=== PATIENT | female | born 1955 | race Caucasian/White ===

== ENCOUNTER 2022-08-21 15:57 | Outpatient (CLI) | payer BC, SELFPAY ==
[2022-08-21 17:01] LABS: Anion Gap 11 mmol/L (8-16); Blood Urea Nitrogen 20 mg/dL (7-17); Calcium 8.9 mg/dL (8.4-10.2); Carbon Dioxide 23 mmol/L (22-30); Chloride 108 mmol/L (98-107); Estimated Glomerular Filt Rate > 60; Glucose 180 mg/dL (65-110); Sodium 142 mmol/L (137-145)
== END 2022-08-21 15:58 | disposition home or self-care (01) ==
PROVIDERS: Anesthesiology; Visit Provider Urology
DX: Z01.818 Encounter for other preprocedural examination (principal); Z79.899 Other long term (current) drug therapy; R32 Unspecified urinary incontinence
CPT/HCPCS: 36415; 80048; 87086

== ENCOUNTER 2022-08-31 00:34 | Day surgery (SDC) | payer BC, SELFPAY ==
[2022-08-17 15:17] VITALS: BMI 31.7
--- NOTE | 2022-08-17 15:27 | PC.NURSE ---
PRE-OP INSTRUCTIONS, PLEASE READ CAREFULLY Report to the Outpatient Waiting Room, entrance under the green pavilion located off [facility], at time _1:30 PM_ on date _08/31/22_. Planned Procedure Time: _3:30 PM_. Time changes happen often and if your time is changed the preop area will call you the afternoon before. - You and your visitor will be asked to self-screen and do not enter if you have any COVID symptoms. - Only one visitor is requested with a max of two and NO children visitors are allowed at this time. - The patient visitor may be requested to leave or wait in car when not with patient due to distancing restrictions. - A mask is optional within the hospital. Patients may have clear liquids (water, carbonated beverages, clear teas, apple juice) until 3 hours prior to surgery (1230PM) with a maximum of 20 ounces. - No food from midnight until time of surgery Take the following medications with a SIP of water the morning of surgery: _BISOPROLOL-HCTZ, CITALOPRAM_ Medications to discontinue per ANESTHESIA - _VITAMINS/SUPPLEMENTS 3 DAYS PRIOR TO SURGERY, Date to take last dose 08/27/22_ Please no make-up, nail czech, hairspray, perfume, deodorant, or body powder the day of surgery. No jewelry (including any body piercings) or valuables the day of surgery, leave them at home. Please take a shower or bath the night before, or the morning of, surgery with an antibacterial soap. Wear comfortable, loose fitting clothing. - Jewelry must be removed prior to entering the operating room. Rings and piercings that are not removed may be cut off. - The hospital will not accept responsibility for valuables. - Please leave all valuables, including medications, at home the day of surgery. If you are going home after surgery, a licensed dray driver must drive you home. - NO public transportation without another adult if you receive anesthesia. - We recommend that an adult stay with you for 24 hours following discharge. - We also recommend that you do not drive, make important decision, drink alcoholic beverages, or take any drugs that were not prescribed by your health care provider for at least 24 hours after your discharge time. Follow any additional instructions given to you from your surgeon. If you or anyone in your household have experienced Covid symptoms in the past week, please notify your surgeon or the nurse liaison at the phone number below for possible testing. Telephone instructions given to ___PT and asked if any additional questions and then verbalized understanding. Patient advised to call surgeon office or pre surgery nurse liaison [phone] if any additional questions.
--- NOTE | 2022-08-28 10:49 | PM.IMHP ---
H&P: HPI History of Present Illness Date/Time: 08/28/22 10:49 Chief Complaint: Incontinence Narrative: 66-year-old with mixed incontinence. Stress incontinence confirmed on urodynamics. On anticholinergic for overactive bladder Review of Systems Review of Systems: All systems reviewed & are unremarkable except as noted in HPI and below PMFSH Past Medical History Medical History Acid reflux Arthritis History of vaginal delivery x 3 Hypertension Surgical History Surgical History History of bladder surgery History of left knee replacement History of shoulder surgery History of total hysterectomy History of tubal ligation Family History Family History Sibling Diabetes mellitus Hypertension Patient's brother is in good health Mother Diabetes mellitus, Onset Age: 92 Hypertension, Onset Age: 92 Other Family history of malignant neoplasm of breast Family history of malignant neoplasm of breast in first degree relative Family history of malignant neoplasm of male breast Social History Social History Smoking status: Never smoker Second hand tobacco smoke exposure: No Alcohol intake: current Alcohol use details: STATES VERY RARELY MAYBE COUPLE DRINKS/6 MONTHS Substance use: never Substance use type: does not use Spiritual care concerns: No Meds Home Medications and Allergies Home Medications Medication Instructions Recorded Confirmed Type bisoprolol 2.5 1 tablet PO DAILY 11/21/19 08/17/22 History mg-hydrochlorothiazide 6.25 mg tablet calcium carbonate 600 mg calcium 600 mg PO DAILY 11/21/19 08/17/22 History (1,500 mg) tablet (Calcium) citalopram 20 mg tablet 20 mg PO DAILY 11/21/19 08/17/22 History multivitamin (Daily Multi-Vitamin 1 tablet PO DAILY 11/21/19 08/17/22 History tablet) cholecalciferol (vitamin D3) 25 25 mcg PO DAILY 11/26/20 08/17/22 History mcg (1,000 unit) capsule oxyquinoline 0.025 %-sodium lauryl See Rx Instructions vaginal 04/15/22 08/17/22 Rx sulfate 0.01 % vaginal gel .COMPLEX #113.4 grams (Trimo-Serrato Jelly) garlic 2 cap QAM 08/17/22 08/17/22 History omeprazole 40 mg capsule,delayed 40 mg QAM 08/17/22 08/17/22 History release oxybutynin chloride 10 mg 10 mg PO DAILY 08/17/22 08/17/22 History tablet,extended release 24 hr clotrimazole-betamethasone 1 1 applic topical BID 2 weeks #15 08/21/22 Rx %-0.05 % topical cream grams estradiol 0.01% (0.1 mg/gram) See Rx Instructions .Route 08/21/22 Rx vaginal cream .COMPLEX #42.5 grams Allergies Allergy/AdvReac Type Severity Reaction Status Date / Time Sulfa (Sulfonamide Allergy Unknown Unknown Verified 08/17/22 15:10 Antibiotics) SULFA Allergy Unknown Unknown Uncoded 08/17/22 15:10 SULFAMERAZINE (Generic Allergy Y Uncoded 08/17/22 15:10 Allergy) Exam Narrative: No acute distress Alert oriented x3 Fixed urethra Assessment and Plan Assessment and plan (1) Intrinsic sphincter deficiency (ISD): Code(s): N36.42 - Intrinsic sphincter deficiency (ISD) Status: Acute Plan Cystoscopy with bulking agent injection. Understands risks of bleeding, infection, incomplete efficacy, need for ancillary procedures, retention. Agrees to proceed
--- NOTE | 2022-08-31 07:17 | WPDHPUPDATE1 ---
History and Physical Update Update Date/Time: 08/31/22 07:17 History and Physical has been reviewed, including an updated exam of the patient. There are NO changes in the patient's condition. Risks, benefits, and alternatives have been discussed and questions answered. Patient agrees to proceed with procedure.
[2022-08-31 08:30] VITALS: BP 140/77; PULSE 54; RESP 18; TEMP 36.2; O2SAT 97
[2022-08-31] MEDS: LACTATED RINGERS 1,000 ML 30 ML IV CONT (08:45)
--- NOTE | 2022-08-31 08:51 | WPDANESEPPF ---
Anes - Initial Pre Proc Eval Procedure: Operation Date: 08/31/22 10:30 Proposed Procedures p Cystoscopy, Injection Bulking Agent - Aashish Velasquez MD <Jorge Luis Taveras MD - Last Filed: 09/01/22 14:17> Date/Time: 08/31/22 08:51 <Jorge Luis Taveras MD - Last Filed: 09/01/22 14:17> Surgeon: Aashish Velasquez MD <Jorge Luis Taveras MD - Last Filed: 09/01/22 14:17> Pre Op Diagnosis: intrinsic sphincter deficiency <Jorge Luis Taveras MD - Last Filed: 09/01/22 14:17> Patient Data Age: 66 Gender: F Height: 1.6 m Weight: 81.36 kg <Jorge Luis Taveras MD - Last Filed: 09/01/22 14:17> Allergies Allergy/AdvReac Type Severity Reaction Status Date / Time Sulfa (Sulfonamide Allergy Unknown Unknown Verified 08/31/22 08:55 Antibiotics) <Jorge Luis Taveras MD - Last Filed: 09/01/22 14:17> Home Medications Medication Instructions Recorded Confirmed Type bisoprolol 2.5 1 tablet PO DAILY 11/21/19 08/31/22 History mg-hydrochlorothiazide 6.25 mg tablet calcium carbonate 600 mg calcium 600 mg PO DAILY 11/21/19 08/31/22 History (1,500 mg) tablet (Calcium) citalopram 20 mg tablet 20 mg PO DAILY 11/21/19 08/31/22 History multivitamin (Daily Multi-Vitamin 1 tablet PO DAILY 11/21/19 08/31/22 History tablet) cholecalciferol (vitamin D3) 25 25 mcg PO DAILY 11/26/20 08/31/22 History mcg (1,000 unit) capsule oxyquinoline 0.025 %-sodium lauryl See Rx Instructions vaginal 04/15/22 08/31/22 Rx sulfate 0.01 % vaginal gel .COMPLEX #113.4 grams (Trimo-Serrato Jelly) garlic 2 cap QAM 08/17/22 08/31/22 History omeprazole 40 mg capsule,delayed 40 mg QAM 08/17/22 08/31/22 History release oxybutynin chloride 10 mg 10 mg PO DAILY 08/17/22 08/31/22 History tablet,extended release 24 hr clotrimazole-betamethasone 1 1 applic topical BID 2 weeks #15 08/21/22 08/31/22 Rx %-0.05 % topical cream grams estradiol 0.01% (0.1 mg/gram) See Rx Instructions .Route 08/21/22 08/31/22 Rx vaginal cream .COMPLEX #42.5 grams phenazopyridine 200 mg tablet 200 mg PO TID PRN pain 6 doses #20 08/31/22 Rx (Pyridium) tabs <Jorge Luis Taveras MD - Last Filed: 09/01/22 14:17> Patient hx anesthesia problems: none <Tank Malik MD - Last Filed: 08/31/22 09:13> Family hx anesthesia problems: none <Tank Malik MD - Last Filed: 08/31/22 09:13> Results Review: All pre-operative results and documents have been reviewed as part of the pre-operative evaluation. <Jorge Luis Taveras MD - Last Filed: 09/01/22 14:17> [facility] Past Medical History Medical History: Medical History Acid reflux Anxiety Arthritis History of vaginal delivery x 3 Hypertension JUDY (obstructive sleep apnea) <Jorge Luis Taveras MD - Last Filed: 09/01/22 14:17> Surgical History Surgical History: Surgical History History of bladder surgery History of left knee replacement History of shoulder surgery History of total hysterectomy History of tubal ligation <Jorge Luis Taveras MD - Last Filed: 09/01/22 14:17> Family History Family History: Family History Sibling Diabetes mellitus Hypertension Patient's brother is in good health Mother Diabetes mellitus, Onset Age: 92 Hypertension, Onset Age: 92 Other Family history of malignant neoplasm of breast Family history of malignant neoplasm of breast in first degree relative Family history of malignant neoplasm of male breast <Jorge Luis Taveras MD - Last Filed: 09/01/22 14:17> Social History Social History: Social History Smoking status: Never smoker Second hand tobacco smoke exposure: No Alcohol intake: current Alcohol use details: STATES VERY RARELY MAYBE COUPLE DRINKS/6 M
[2022-08-31] MEDS: ceFAZolin 2 GM/D5W 50 ML 2 GM/50 ML BAG IVPB (10:23)
--- NOTE | 2022-08-31 10:48 | W.PM.PROC2 ---
Procedure Note - Detailed Date of Procedure 08/31/22 Pre-op Diagnosis intrinsic sphincter deficiency Post-op Diagnosis Same Procedure Performed Cystoscopy with suburethral injection of implant material Surgeon Aashish Velasquez MD Anesthesia MAC Indications This is a woman with intrinsic sphincter deficiency. She has had a previous stress incontinence operation. She also has a degree of overactive bladder. She understands she is here today for treatment of the stress incontinence. She understands risks of bleeding, infection, damage to the urinary tract, incomplete efficacy, need for repeat procedures, need for catheterization. She agrees to proceed Findings Open urethra consistent with intrinsic sphincter deficiency Description of Procedure She has correctly identified. Informed consent obtained. She from the operating room. She was given MAC anesthesia. She was prepped and draped in a sterile fashion. Time-out performed. I performed cystoscopy. Her bladder was examined and was normal. Urethra open consistent with intrinsic sphincter deficiency. I chose a site 2 cm distal to bladder neck. I injected the bulking agent circumferentially. There was excellent bulking effect. I used 1 total syringe. There is no leakage on Crede a. I left her bladder partially full. She was awakened transferred PACU in stable condition Estimated Blood Loss 1 Drains No Packing No Pathology None sent Complications No immediate complications Condition Stable Disposition PACU
[2022-08-31 10:54] VITALS: BP 99/59; PULSE 51; RESP 12; O2SAT 97
[2022-08-31 11:24] VITALS: BP 116/70; PULSE 54; RESP 12; O2SAT 100
[2022-08-31 11:30] VITALS: BP 129/75; PULSE 61; RESP 14; O2SAT 97
[2022-08-31 12:00] VITALS: BP 129/66; PULSE 62; RESP 14
== END 2022-08-31 12:09 | disposition home or self-care (01) ==
PROVIDERS: Visit Provider Urology
PROC: 3E0K8GC Introduction of Other Therapeutic Substance into Genitourinary Tract, Via Natural or Artificial Opening Endoscopic (ICD-10-PCS; CPT 51715; principal; 2022-08-31 10:30)
DX: N36.42 Intrinsic sphincter deficiency (ISD) (principal); N32.81 Overactive bladder; N39.3 Stress incontinence (female) (male); I10 Essential (primary) hypertension; G47.33 Obstructive sleep apnea (adult) (pediatric); K21.9 Gastro-esophageal reflux disease without esophagitis; F41.9 Anxiety disorder, unspecified; E66.9 Obesity, unspecified; Z68.32 Body mass index [BMI] 32.0-32.9, adult
CPT/HCPCS: 51715; A9270; J0690; J2250; J2405; J2704; J3010; J7120; L8606

== ENCOUNTER 2022-11-17 14:10 | Outpatient (CLI) | payer BC, SELFPAY ==
[2022-11-17 15:05] LABS: Anion Gap 4 mmol/L (8-16); Blood Urea Nitrogen 13 mg/dL (7-17); Carbon Dioxide 31 mmol/L (22-30); Chloride 101 mmol/L (98-107); Estimated Glomerular Filt Rate > 60; Glucose 169 mg/dL (65-110); Sodium 136 mmol/L (137-145)
[2022-11-17 15:12] LABS: Potassium 3.6 mmol/L (3.4-5.0)
== END 2022-11-17 14:11 | disposition home or self-care (01) ==
LOC: ANHSURGERY 14:17
PROVIDERS: Anesthesiology; Visit Provider Urology
DX: N36.42 Intrinsic sphincter deficiency (ISD) (principal); I10 Essential (primary) hypertension
CPT/HCPCS: 36415; 80048; 87086; 87088

== ENCOUNTER 2022-11-23 01:01 | Day surgery (SDC) | payer BC, SELFPAY ==
--- NOTE | 2022-11-13 07:52 | PC.NURSE ---
Report to the Outpatient Waiting Room, entrance under the green pavilion located off [facility], at time _1300 on date __11/23/22 . Planned Procedure Time: _1500 . Time changes happen often and if your time is changed the preop area will call you the afternoon before. - You and your visitor will be asked to self-screen and do not enter if you have any COVID symptoms. - Only one visitor is requested with a max of two and NO children visitors are allowed at this time. - The patient visitor may be requested to leave or wait in car when not with patient due to distancing restrictions. - A mask is optional within the hospital at this time. Patients may have clear liquids (water, carbonated beverages, clear teas, apple juice) until 3 hours prior to surgery with a maximum of 20 ounces. - No food from midnight until time of surgery - Infants may have breast milk until 4 hours before surgery, formula 6 hours prior to surgery. - Children will be allowed to drink immediately following surgery. If applicable, please bring a bottle or sippy cup to assist with drinking. Juice, water, soda, and popsicles are readily available. For infants on formula, please bring formula the day of surgery. Pacifiers are allowed. Take the following medications with a SIP of water the morning of surgery: _BISOPROLOL-HCTZ, AND CITALOPRAM DO NOT STOP ANY OF YOUR OTHER PRESCRIPTION MEDICATIONS PRIOR TO SURGERY ?EXCEPT THE FOLLOWING Medications to discontinue per physician _ALL VITAMINS/SUPPLEMENTS 3 DAYS PRE OP .LAST DOSE 11/19/22 Please no make-up, nail [place], hairspray, perfume, deodorant, or body powder the day of surgery. No jewelry (including any body piercings) or valuables the day of surgery, leave them at home. Please take a shower or bath the night before, or the morning of, surgery with an antibacterial soap. Wear comfortable, loose fitting clothing. Children are encouraged to wear pajamas. - Jewelry must be removed prior to entering the operating room. Rings and piercings that are not removed may be cut off. - The hospital will not accept responsibility for valuables. - Please leave all valuables, including medications, at home the day of surgery. If you are going home after surgery, a licensed catering driver must drive you home. - NO public transportation without another adult if you receive anesthesia. - We recommend that an adult stay with you for 24 hours following discharge. - We also recommend that you do not drive, make important decision, drink alcoholic beverages, or take any drugs that were not prescribed by your health care provider for at least 24 hours after your discharge time. For Pediatric surgeries, we recommend two adults accompany the child home. Follow any additional instructions given to you from your surgeon. If you or anyone in your household have experienced Covid symptoms in the past week, please notify your surgeon or the nurse liaison at the phone number below for possible testing. Telephone instructions given to ___PATIENT and asked if any additional questions and then verbalized understanding. Patient advised to call surgeon office or pre surgery nurse liaison [phone] if any additional questions.
[2022-11-13 08:02] VITALS: BMI 31.8
--- NOTE | 2022-11-20 10:48 | PM.IMHP ---
H&P: HPI History of Present Illness Date/Time: 11/20/22 10:48 Chief Complaint: intrinsic sphincter deficiency Narrative: 67-year-old with a fixed urethra and intrinsic sphincter deficiency. She presents for a 2nd injection of a bulking agent Review of Systems Review of Systems: All systems reviewed & are unremarkable except as noted in HPI and below PMFSH Past Medical History Medical History Acid reflux Anxiety Arthritis History of vaginal delivery x 3 Hypertension JUDY (obstructive sleep apnea) Surgical History Surgical History History of bladder surgery History of left knee replacement History of shoulder surgery History of total hysterectomy History of tubal ligation Family History Family History Sibling Diabetes mellitus Hypertension Patient's brother is in good health Mother Diabetes mellitus, Onset Age: 92 Hypertension, Onset Age: 92 Other Family history of malignant neoplasm of breast Family history of malignant neoplasm of breast in first degree relative Family history of malignant neoplasm of male breast Social History Social History Smoking status: Never smoker Second hand tobacco smoke exposure: No Alcohol intake: current Alcohol use details: ONE DRINK/MONTH Substance use: never Substance use type: does not use Living arrangements: with family Spiritual care concerns: No Meds Home Medications and Allergies Home Medications Medication Instructions Recorded Confirmed Type bisoprolol 2.5 1 tablet PO DAILY 11/21/19 11/13/22 History mg-hydrochlorothiazide 6.25 mg tablet calcium carbonate 600 mg calcium 600 mg PO DAILY 11/21/19 11/13/22 History (1,500 mg) tablet (Calcium) citalopram 20 mg tablet 20 mg PO DAILY 11/21/19 11/13/22 History multivitamin (Daily Multi-Vitamin 1 tablet PO DAILY 11/21/19 11/13/22 History tablet) cholecalciferol (vitamin D3) 25 25 mcg PO DAILY 11/26/20 11/13/22 History mcg (1,000 unit) capsule garlic 2 cap PO QAM 08/17/22 11/13/22 History omeprazole 40 mg capsule,delayed 40 mg PO QAM 08/17/22 11/13/22 History release estradiol 0.01% (0.1 mg/gram) See Rx Instructions .Route 08/21/22 11/13/22 Rx vaginal cream .COMPLEX #42.5 grams Allergies Allergy/AdvReac Type Severity Reaction Status Date / Time Sulfa (Sulfonamide Allergy Unknown Hives Verified 11/13/22 07:43 Antibiotics) Exam Narrative: fixed urethra no acute distress normal breathing alert orient x3 Assessment and Plan Assessment and plan (1) Intrinsic sphincter deficiency (ISD): Code(s): N36.42 - Intrinsic sphincter deficiency (ISD) Status: Acute Assessment and Plan: cystoscopy with injection of bulking agent. Understands risks of bleeding, infection, lack of efficacy, retention, recurrent or persistent stress incontinence. She agrees to proceed
--- NOTE | 2022-11-23 07:15 | WPDHPUPDATE1 ---
History and Physical Update Update Date/Time: 11/23/22 07:15 History and Physical has been reviewed, including an updated exam of the patient. There are NO changes in the patient's condition. Risks, benefits, and alternatives have been discussed and questions answered. Patient agrees to proceed with procedure.
[2022-11-23 09:30] VITALS: BP 142/72; PULSE 59; RESP 16; TEMP 36.2; O2SAT 97
[2022-11-23] MEDS: LACTATED RINGERS 1,000 ML 30 ML IV CONT (09:30)
--- NOTE | 2022-11-23 10:25 | WPDANESEPPF ---
Anes - Initial Pre Proc Eval Procedure: Operation Date: 11/23/22 11:00 Proposed Procedures p Cystoscopy, Injection Bulking Agent - Aashish Velasquez MD Date/Time: 11/23/22 10:25 Surgeon: Aashish Velasquez MD Pre Op Diagnosis: ID Patient Data Age: 67 Gender: F Height: 1.6 m Weight: 85.8 kg Last Vital Signs Temp 97.2 F L 11/23/22 09:30 Pulse 59 L 11/23/22 09:30 Resp 16 11/23/22 09:30 BP 142/72 H 11/23/22 09:30 Pulse Ox 97 11/23/22 09:30 O2 Del Method Room Air 11/23/22 09:30 Allergies Allergy/AdvReac Type Severity Reaction Status Date / Time Sulfa (Sulfonamide Allergy Unknown Hives Verified 11/23/22 09:29 Antibiotics) Home Medications Medication Instructions Recorded Confirmed Type bisoprolol 2.5 1 tablet PO DAILY 11/21/19 11/23/22 History mg-hydrochlorothiazide 6.25 mg tablet calcium carbonate 600 mg calcium 600 mg PO DAILY 11/21/19 11/23/22 History (1,500 mg) tablet (Calcium) citalopram 20 mg tablet 20 mg PO DAILY 11/21/19 11/23/22 History multivitamin (Daily Multi-Vitamin 1 tablet PO DAILY 11/21/19 11/23/22 History tablet) cholecalciferol (vitamin D3) 25 25 mcg PO DAILY 11/26/20 11/23/22 History mcg (1,000 unit) capsule garlic 2 cap PO QAM 08/17/22 11/23/22 History omeprazole 40 mg capsule,delayed 40 mg PO QAM 08/17/22 11/23/22 History release estradiol 0.01% (0.1 mg/gram) See Rx Instructions .Route 08/21/22 11/23/22 Rx vaginal cream .COMPLEX #42.5 grams Patient hx anesthesia problems: none Family hx anesthesia problems: none Results Review: All pre-operative results and documents have been reviewed as part of the pre-operative evaluation. [facility] Past Medical History Medical History Acid reflux Anxiety Arthritis History of vaginal delivery x 3 Hypertension JUDY (obstructive sleep apnea) Surgical History Surgical History History of bladder surgery History of left knee replacement History of shoulder surgery History of total hysterectomy History of tubal ligation Family History Family History Sibling Diabetes mellitus Hypertension Patient's brother is in good health Mother Diabetes mellitus, Onset Age: 92 Hypertension, Onset Age: 92 Other Family history of malignant neoplasm of breast Family history of malignant neoplasm of breast in first degree relative Family history of malignant neoplasm of male breast Social History Social History Smoking status: Never smoker Second hand tobacco smoke exposure: No Alcohol intake: current Alcohol use details: ONE DRINK/MONTH Substance use: never Substance use type: does not use Living arrangements: with family Spiritual care concerns: No Anes - Eval Final PreProcedure Day of Procedure 11/23/22 10:25 Patient weight: obese Heart: regular rate and rhythm Lungs: clear to auscultation Airway: Mallampati scale class II Neurological: alert and oriented Last oral intake: >/= 8 hours ASA classification: III Emergent: no Anesthetic plan: proceed Anesthesia type and monitoring: general GIVS and standard monitoring Results Review: All pre-operative results and documents have been reviewed as part of the pre-operative evaluation. Informed Consent: The patient's anesthetic plan and its attendant risks and benefits were discussed with the patient/family/POA. Questions were solicited and answers provided to the satisfaction of the patient/family/POA.
[2022-11-23] MEDS: ceFAZolin 2 GM/D5W 50 ML 2 GM/50 ML BAG IVPB (10:47)
[2022-11-23] MEDS: LIDOCAINE HCL 2% GEL UROJET 10 ML PKG MUCOUS MEM (11:07)
[2022-11-23 11:15] VITALS: BP 114/58; PULSE 60; RESP 16; O2SAT 93
[2022-11-23 11:45] VITALS: BP 110/62; PULSE 55; RESP 16; O2SAT 95
[2022-11-23 12:15] VITALS: BP 137/58; PULSE 60; RESP 16; O2SAT 96
--- NOTE | 2022-11-23 15:34 | W.PM.PROC2 ---
Procedure Note - Detailed Date of Procedure 11/23/22 Pre-op Diagnosis Intrinsic sphincter deficiency Post-op Diagnosis Same Procedure Performed Cystoscopy with suburethral injection of implant material Surgeon Aashish Velasquez MD Anesthesia MAC Indications This is a with intrinsic sphincter deficiency. She is here for a repeat injection of bulking agent. She understands risks of bleeding, infection, lack of efficacy, retention, need for future procedures. She agrees to proceed Description of Procedure She was correctly identified. Informed consent obtained. She from the operating room. She was given MAC anesthesia. She was placed in dorsal lithotomy position. She was prepped and draped sterile fashion. Time-out performed. Cystoscopy revealed some evidence of prior bulking agent. Bladder otherwise unremarkable. No foreign bodies or tumors. Ureteral orifices were normal. I chose a site 2 cm distal bladder neck. I injected 1-1/2 syringe of bulking agent circumferentially coapted the urethra. I left the bladder partially full. She was awakened transferred to PACU in stable condition Estimated Blood Loss 0 Complications No immediate complications Condition Stable Disposition PACU
== END 2022-11-23 12:24 | disposition home or self-care (01) ==
PROVIDERS: Visit Provider Urology
PROC: 3E0K8GC Introduction of Other Therapeutic Substance into Genitourinary Tract, Via Natural or Artificial Opening Endoscopic (ICD-10-PCS; CPT 51715; principal; 2022-11-23 11:00)
DX: N36.42 Intrinsic sphincter deficiency (ISD) (principal); K21.9 Gastro-esophageal reflux disease without esophagitis; I10 Essential (primary) hypertension; G47.33 Obstructive sleep apnea (adult) (pediatric); F41.9 Anxiety disorder, unspecified; E66.9 Obesity, unspecified; Z68.33 Body mass index [BMI] 33.0-33.9, adult
CPT/HCPCS: 51715; J0690; J1100; J2250; J2405; J2704; J3010; J7120; L8606